=== PATIENT | female | born 1965 | race Caucasian/White ===

== ENCOUNTER → 2024-06-12 | Day surgery (SDC) | payer OTHER ==
[~2024-06-12] MED LIST: BUPIVACAINE HCL 0.5% 50ML VIAL ONE; CEFAZOLIN SODIUM 1,000 MG VIAL ONE; ENOXAPARIN SODIUM 40 MG/0.4 ML SYRINGE SUBCUTANEO ONE; EPINEPHRINE HCL/PF 1 MG/ML AMPUL ONE; LIDOCAINE HCL 1%/EPINEPHRINE 20ML VIAL IJ ONE; TRANEXAMIC ACID 100MG/1ML (1000MG) AMPUL IV ONE
== END | disposition home or self-care (01) ==
LOC: CIR.AMB 06-11 15:15 → ADM 06-11 15:15 → CIR.AMB 05:25
PROVIDERS: ATTEND Specialist
DX: N62 Hypertrophy of breast (principal); H52.10 Myopia, unspecified eye